=== PATIENT | female | born 1985 | race American Indian/Alaskan Native ===

== ENCOUNTER 2017-11-22 19:26 | Inpatient (IN) | payer BC, MEDICAID ==
--- NOTE | 2017-11-22 19:58 | History and Physical Report ---
History of Present Illness Date of examination: 11/22/17 Chief complaint: Painful contractions every 3 minutes History of present illness: EDC Calculations by 12wk sono: 11/17/17 History : 3 Term Births: 1 Premature Births: 0 Living Children: 1 Para: 1 Aborta: 1 Elect. Ab: 1 Spont. Ab: 0 Ectopics: 0 # 1 Delivery date: 2002 Delivery type: EAB # 2 Delivery date: 09/30/2011 Weeks Gestation: 41.0 Delivery type: Vaginal Anesthesia type: epidural Sex: male weight: 6.44 Comments: terminal meconium Past Medical History: Reviewed history from 10/22/2016 and no changes required: Negative Past Medical History Past Surgical History: Reviewed history from 10/22/2016 and no changes required: positive Cholecystectomy Past Medical History Abnormal PAP: negative FADY Exposure: negative Infertility: negative Social Hx: Patient is single-engaged to FOC no etoh, no illicit drug use, no tobacco use Infection History Hx of STD: chlamydia HIV Risk Eval: low risk Hepatitis B Risk Eval: low risk Personal hx. of genital herpes: no Partner hx. of genital herpes: no Rash, Viral, or Febrile illness since last LMP? no Varicella/Chicken Pox Status: Previous Disease Genetic History Congenital Heart Defect: Mom: no Dad: no J Carlos Disease: Mom: no Dad: no Thalassemia Mom: no Dad: no Neural Tube Defect Mom: no Dad: no Down's Syndrome Mom: no Dad: no Otto-Sachs Mom: no Dad: no Sickle Cell Disease/Trait Mom: no Dad: no Hemophilia Mom: no Dad: no Muscular Dystrophy Mom: no Dad: no Cystic Fibrosis Mom: no Dad: no [place] Chorea Mom: no Dad: no Mental Retardation Mom: no Dad: no Fragile X Mom: no Dad: no Other Genetic/Chromosomal Disorder Mom: no Dad: no Child w/other defect Mom: no Dad: no Enviromental Exposures Xray Exposure: no Medication, drug, or alcohol use since LMP: no Chemical/Other Exposure: no Exposure to Cat Liter: no Hx of Parvovirus (Fifth Disease): no Occupational Exposure to Children: none Active Medications (reviewed today): PLUS 27-1 MG ORAL TABLET ( VIT-FE FUMARATE-FA) 1 po q day PLUS 27-1 MG ORAL TABLET ( VIT-FE FUMARATE-FA) 1 po DIFLUCAN 150 MG ORAL TABLET (FLUCONAZOLE) 1 tab weekly Current Allergies (reviewed today): * NKDA (Critical) Past History Past Medical History: other (see HPI) Past Surgical History: other (see HPI) SCRIPT SUPERVISOR History: other (see HPI) Family/Genetic History: other (see HPI) - Obstetrical History Expected Date of Delivery: 11/17/17 Actual Gestation: 40 Week(s) 5 Day(s) : 3 Para: 1 Hx # Term Pregnancies: 1 Number of Pregnancies: 0 Spontaneous Abortions: 0 Induced : 1 Number of Living Children: 1 Medications and Allergies Allergies Allergy/AdvReac Type Severity Reaction Status Date / Time No Known Allergies Allergy Verified 07/10/13 06:07 Home Medications Medication Instructions Recorded Confirmed Last Taken Type Pantoprazole [Protonix] 40 mg PO QDAY #30 tablet 07/28/13 Unknown Rx RX: HYDROcodone/APAP 10-325 [[place] 1 each PO Q6HR PRN #20 tablet 07/28/13 Unknown Rx 10-325 mg TAB] levoFLOXacin [Levaquin] 500 mg PO QDAY #7 tablet 07/28/13 Unknown Rx Review of Systems All systems: negative - Physical Exam Breasts: Positive: normal Cardiovascular: Regular rate Lungs: Positive: Clear to auscultation, Normal air movement Abdomen: Positive: normal appearance, soft Genitourinary (Female): Positive: normal external genitalia, normal perenium Vulva: both: normal Vagina: Positive: normal moisture Uterus: Positive: normal size, normal contour Anus/Rectum: Positive: normal perianal skin Extremities: Positive: normal - Obstetrical FHR: category 1 Uterine Contraction Monitor Mode: External Cervical Dilatation: 3 Cervical Effacement Percentage: 80 station: -2 Uterine Contraction Frequency (min): 3 Uterine Contraction Duration: 60 Uterine Contraction Pattern: Irregular Uterine Tone Measurement Phase: Contraction Uterine Contraction Intensity: Moderate Results All other labs normal. Assessment and Plan 32y/o @ 40+5 weeks in labor, GBS +. u/s in office 11/18/17 EFW 7#7oz (41st% ) vertex, junior 12. Admission orders in EMR. Anticipate . - Patient Problems (1) 40 weeks gestation of Current Visit: Yes Status: Acute (2) GBS (group B Streptococcus carrier), +RV culture, currently Current Visit: Yes Status: Acute
[2017-11-22] MEDS ORDERED: XYLOCAINE 2% INFILTRATI ONE (20:02)
[2017-11-22] MEDS ORDERED: BRETHINE SUB-Q PRN (20:02)
[2017-11-22] MEDS ORDERED: SUBLIMAZE IV PRN (20:02)
[2017-11-22] MEDS ORDERED: MINERAL OIL PO PRN (20:02)
[2017-11-22] MEDS ORDERED: POLYCILLIN/NS 2 GM/100 ML 2 GM/100 ML BAG IV ONE (20:30)
[2017-11-22 20:34] LABS: Hematocrit 36.9 % (30.3-42.9); Hemoglobin 12.9 gm/dl (10.1-14.3); Mean Corpuscular HGB Conc 35 % (30-34); Mean Corpuscular Hemoglobin 30 pg (28-32); Mean Corpuscular Volume 85 fl (79-97); Platelet Count 271 K/mm3 (140-440); Red Blood Count 4.34 M/mm3 (3.65-5.03); Red Cell Distribution Width 15.1 % (13.2-15.2)
[2017-11-22] MEDS ORDERED: PITOCin/NS 20 UNIT/1000ML DRIP 20 UNITS/1,000 ML BAG IV SCH (21:00)
[2017-11-22] MEDS ORDERED: LACTATED RINGERS 1,000 ML IV SCH (21:00)
[2017-11-22] MEDS ORDERED: NARCAN 2 MG/2 ML IV PRN (21:11)
[2017-11-22] MEDS ORDERED: ZOFRAN ONE (21:52)
[2017-11-22] MEDS ORDERED: fentaNYL-BUPIV 2 MCG/ML-0.125% 200 MCG/100 ML BAG EPIDURAL SCH (22:00)
[2017-11-22] MEDS ORDERED: ZOFRAN IV ONE (22:37)
[2017-11-22] MEDS ORDERED: PITOCin/NS 30 UNIT/500ML 30,000 MILLIUNITS/500 ML BAG IV ONE ×2 (23:00→23:04)
--- NOTE | 2017-11-22 23:58 | Procedure Note ---
OB Delivery Note - Delivery Date of Delivery: 11/22/17 ( Female) Fire Control Assistant: HOANG YANEZ Estimated blood loss: 300cc - Vaginal Delivery presentation: vertex Delivery position: OA Intrapartum events: meconium Delivery induction: none Delivery augmentation: rupture of membranes Delivery monitor: external FHT, external uterine Route of delivery: Delivery placenta: spontaneous Delivery cord: 3 umbilical vessels Episiotomy: none Delivery laceration: none Anesthesia: epidural Delivery comments: Female delivered over intact perineum (significant swelling noted), infant del JORGE, no shoulder dystocia. Cord clamped x2 and cut, infant taken to warmer for assessment by NICU/ATHLETIC INSTRUCTOR d/t thick mec stained fluid. Cord blood collected. Placenta del after 20 minutes, pit to IVF. No lacerations to repair. Placenta to pathology d/t mec fluid. Apgars 8/9, wt 7#14oz, EBL 300. Mother and infant LDR stable. *noted by NICU - infant's left knee appears to face opposite direction. Could be positional or related to joint - SCRUM MASTER ordered xray of infant's knee and hip. - A Infant Gender: Female (7#14)
[2017-11-23] MEDS ORDERED: PERCOCET 5/325 PO ONE
[2017-11-23] MEDS ORDERED: MOTRIN PO PRN
[2017-11-23] MEDS ORDERED: AMPICILLIN/NS 1 GM/50 ML 1 GM/50 ML BAG IV SCH (00:03)
[2017-11-23] MEDS ORDERED: DULCOLAX PR PRN (02:23)
[2017-11-23] MEDS ORDERED: DERMOPLAST TP PRN (02:23)
[2017-11-23] MEDS ORDERED: MILK OF MAGNESIA PO PRN (02:23)
[2017-11-23] MEDS ORDERED: LANSINOH TP PRN (02:23)
[2017-11-23] MEDS ORDERED: PHENERGAN PO PRN (02:23)
[2017-11-23] MEDS ORDERED: NORCO 5/325 PO PRN (02:23)
[2017-11-23] MEDS ORDERED: TYLENOL PO PRN (02:23)
[2017-11-23] MEDS ORDERED: PITOCin/NS 20 UNIT/1000ML DRIP 20 UNITS/1,000 ML BAG IV SCH (02:23)
[2017-11-23] MEDS ORDERED: SODIUM CHLORIDE FLUSH SYRINGE 10 ML IV PRN (02:23)
[2017-11-23] MEDS ORDERED: BENADRYL PO PRN (02:23)
[2017-11-23] MEDS ORDERED: TUCKS PAD TP PRN (02:23)
--- NOTE | 2017-11-23 06:46 | Progress Note ---
Assessment and Plan Pt with labial swelling VSS FF below umb Lochia small Perineum is intact H&H pending Doing well s/p vag delivery P: continue pathway Ice packs to labia prn swelling/pressure. Adv as tolerated D/C tomorrow Subjective - Subjective Date of service: 11/23/17 (OOB walking in Hallway) Principal diagnosis: Day # 1 s/p Patient reports: appetite normal, voiding normally, pain well controlled, ambulating normally : doing well Objective - Vital Signs Latest vital signs: Vital Signs Temp Pulse Resp BP 11/23/17 04:00 98.7 F 64 18 112/78 11/23/17 02:00 98.7 F 66 16 113/79 11/23/17 00:00 97.8 F 108 H 18 136/91 11/22/17 23:30 88 133/88 11/22/17 22:30 89 18 134/89 Intake and Output 11/22/17 11/22/17 11/23/17 14:59 22:59 06:59 Intake Total 300 Output Total 600 Balance -300 Intake: Intake, Free Water 300 Output: Urine 600 Void 600 Other: Total, Output Amount 600 # Voids Void 1 Weight 200 lb 6.548 oz Estimated Blood Loss 300 Patient Weight 11/23/17 06:59 Weight 200 lb 6.548 oz - Exam Narrative Exam: Pt still has bilateral swelling on labia; skin is intact. Encouraged ice pack. Pt denies any issue with voiding. Breasts: Present: normal Cardiovascular: Present: Regular rate Lungs: Present: Normal air movement Abdomen: Present: normal appearance, soft, normal bowel sounds Uterus: Present: normal, firm, fundal height below umbilicus Extremities: Present: normal Deep Tendon Reflex Grade: Normal +2 Incision: Present: normal, dry, intact - Labs Labs: Abnormal lab results 11/22/17 Range/Units 20:20 WBC 11.4 H (4.5-11.0) K/mm3 MCHC 35 H (30-34) %
[2017-11-23 10:47] LABS: Hematocrit 32.9 % (30.3-42.9); Hemoglobin 10.9 gm/dl (10.1-14.3)
[2017-11-23] MEDS: MOTRIN PO SCH ×3 (11:52→23:39)
[2017-11-23] MEDS: COLACE PO SCH (11:52)
[2017-11-23] MEDS: PRENATAL VITAMIN PO SCH (11:52)
[2017-11-24] MEDS: MOTRIN PO SCH (05:58)
[2017-11-24] MEDS ORDERED: BOOSTRIX IM ONE (06:00)
--- NOTE | 2017-11-24 06:16 | Discharge Summary ---
Providers - Providers Date of Admission: 11/22/17 20:21 Date of discharge: 11/24/17 (pt agrees with d/c) Attending physician: RIGO CANO 11/23/17 02:23 Consult to Structural Engineering Technician [CONS] Routine Reason For Exam: assistance with , SNS Primary care physician: RIGO CANO Hospitalization Reason for admission: active labor Delivery: Episiotomy: none Laceration: none Incision: normal Other procedures: none complications: none Discharge diagnosis: IUP at term delivered baby: female Hospital course: uncomplicated vaginal delivery Pt w/o complaint VSS FF below umb Lochia scant Perineum intact Doing well s/p vag delivery P: d/c today f/u in office in 4 weeks Condition at discharge: Good Disposition: DC-01 TO HOME OR SELFCARE - Discharge Diagnoses (1) (normal spontaneous vaginal delivery) Status: Acute Comment: RTO 4 weeks PP care Plan - Provider Discharge Summary Activity: routine, no sex for 6 weeks, no heavy lifting 4 weeks, no strenuous exercise Diet: routine Instructions: routine Additional instructions: [] Smoking cessation referral if applicable(refer to patient education folder for contact #) [] Refer to [facility] Booklet Call your doctor immediately for: * Fever > 100.5 * Heavy vaginal bleeding ( >1 pad per hour) * Severe persistent headache * Shortness of breath * Reddened, hot, painful area to leg or breast * Drainage or odor from incision. * Keep incision clean and dry at all times and follow doctor's instructions regarding bathing/showering - Follow up plan Follow up: RIGO CANO MD [Primary Care Provider] - 12/22/17 (Congratulations! Please call [phone] to schedule your visit in 4 weeks. Call with concerns.)
[2017-11-24] MEDS: PRENATAL VITAMIN PO SCH (17:27)
[2017-11-24] MEDS: COLACE PO SCH (17:27)
[2017-11-24 18:52] VITALS: BP 124/68
== END 2017-11-24 20:40 | disposition home or self-care (01) | DRG 775 ==
LOC: TRG 19:26 → LD 20:21 → TRG 20:21 → OB 11-23 02:22
PROVIDERS: ADMIT Obstetrics & Gynecology; ATTEND Obstetrics & Gynecology
PROC: 10E0XZZ Delivery of Products of Conception, External Approach (ICD-10-PCS; principal; 2017-11-22)
PROC: 3E0R3BZ Introduction of Anesthetic Agent into Spinal Canal, Percutaneous Approach (ICD-10-PCS; 2017-11-22)
PROC: 00HU33Z Insertion of Infusion Device into Spinal Canal, Percutaneous Approach (ICD-10-PCS; 2017-11-22)
PROC: 10907ZC Drainage of Amniotic Fluid, Therapeutic from Products of Conception, Via Natural or Artificial Opening (ICD-10-PCS; 2017-11-22)
DX: O99.824 Streptococcus B carrier state complicating childbirth (principal); Z3A.40 40 weeks gestation of pregnancy; Z37.0 Single live birth; Z90.49 Acquired absence of other specified parts of digestive tract; O77.0 Labor and delivery complicated by meconium in amniotic fluid
CPT/HCPCS: 36415; 85014; 85018; 85027; 86592; 86850; 86900; 86901; 88305; 88307; 90471; 90715; 99211; G0463; J0290; J2405; J2590; J3010; J7120